=== PATIENT | female | born 1975 | race Caucasian/White ===

== ENCOUNTER → 2022-11-17 | Outpatient (CLI) | payer BC ==
[~2022-11-17] MED LIST: AC325T PO; ACHD5005 PO; DCS100C PO; DOCU100C37 PO; FERR-57 PO; FERR325T18 PO; HYDR-757 PO; IBP600T1 PO; IBUP-1780 PO; PREN-115 PO
--- NOTE | 2022-11-20 09:54 | Diagnostic Imaging Report ---
INDICATION: Routine screening. No prior mammograms are available for comparison. This is a baseline study. 2-D and 3-D bilateral screening mammography was performed with CAD. Both breasts are heterogeneously dense, limiting the sensitivity of mammography. No mass or malignant-appearing microcalcifications are seen. There are occasional benign calcifications bilaterally. The axillae are unremarkable. IMPRESSION: No mammographic features suspicious for malignancy are identified. ACR BI-RADS Category 2: Benign findings. Result letter will be mailed to the patient. Note: At least 10% of breast cancer is not imaged by mammography. BI-RADS Category 2 Dictated by: Dictated on workstation # [id number]
== END ==
LOC: RAD 15:45
PROVIDERS: ATTEND Nurse Practitioner Women's Health
DX: Z12.31 Encounter for screening mammogram for malignant neoplasm of breast (principal)
CPT/HCPCS: 77063; 77067